=== PATIENT | female | born 1995 | race Caucasian/White ===

== ENCOUNTER 2024-09-11 07:48 | Inpatient (IN) ==
[2024-09-11] MEDS ORDERED: CALCIUM CARBONATE 500 MG CHEWABLE TAB PO PRN (07:49)
[2024-09-11] MEDS ORDERED: OXYTOCIN 30 UNITS/NSS 30 UNITS/500 ML BAG IV PRN ×2 (07:49→23:08)
[2024-09-11] MEDS ORDERED: LIDOCAINE 1% LOCAL 20 ML VIAL INFIL PRN (07:49)
[2024-09-11 08:45] LABS: Hematocrit (blood only) 34.5 % (37.0-47.0); Hemoglobin 11.7 g/dl (12.0-16.0); Mean Corpuscular Hemoglobin 32.6 pg (25.0-34.0); Mean Corpuscular Hgb Conc 33.9 g/dL (32.0-36.0); Mean Corpuscular Volume 96.1 fL (80.0-100.0); Mean Platelet Volume 12.1 fL (9.4-12.4); Platelet Count 183 K/uL (130-400); RDW Coefficient of Variation 12.9 % (11.5-14.5); RDW Standard Deviation 45.8 fL (36.4-46.3); Red Blood Count 3.59 M/uL (4.20-5.40); White Blood Count 9.92 K/ul (4.8-10.8)
[2024-09-11] MEDS: LACTATED RINGER'S 1,000 ML IV PRN (09:12)
--- NOTE | 2024-09-11 09:13 | History & Physical Report ---
Date of Service September 11, 2024 Assessment & Plan (1) Encounter for induction of labor: Plan: admit, iv, labs. start pitocin. arom when able. fhts categ 1. (2) Non-dilated cervix in term : Plan: vega ripening balloon placed. pt kourtney well. Admission and Anticipated Discharge Date Admission Date: September 11, 2024 History of Present Illness Chief Complaint: planned induction Primary Care Provider: VANIA Xie 28yo at 40+wks arianne presents to LD for planned induction. She denies rom, vb. +FM. No ctx. She did not get to come in overnight for planned vega ripening balloon. PNC c/b 1. marginal cord insertion PNL rh pos, ri, gbs neg OBH: g1 GYNH: nl paps no stds Allergies Allergy/AdvReac Type Severity Reaction Status Date / Time No Known Allergies Allergy Verified 09/10/24 14:09 Home Medications Medication Instructions Recorded Confirmed Type omega-3 fatty acids [Fish Oil] 1 tab PO DAILY 04/28/24 09/11/24 History prenat.vits,al,qqm-[id number] 1 tab PO DAILY 04/28/24 09/11/24 History omeprazole 20 mg capsule,delayed 20 mg PO DAILY 08/05/24 09/11/24 History release Patient History Medical History (Updated 09/11/24 @ 09:16 by Diana Odom MD, FACOG) Depression Patient states, she had depression in high school and not on medication currently. Family History Aunt Breast cancer Great aunt - maternal Grandmother (Maternal) Vulvar cancer Great great gma Mother Female bladder prolapse Denies family history of Ovarian cancer Prostate cancer Myocardial infarction Colorectal cancer Social History (Updated 09/11/24 @ 08:01 by Pia West RN) Smoking Status: Former smoker Tobacco Type: E-cigarettes / Vaping Smoking End Date: 01-03; Second Hand Exposure: No; Do You Dip or Chew Tobacco: No; Hx Alcohol Use: No Hx Substance Use: No Preferred Language: Vietnamese Communication Ability: Effective Hearing Ability: Normal Test Preparer Required: No Beliefs That Will Affect Care: None marital status: marital status details: Hector (34) [phone] Current Living Situation: Spouse Current Living Situation Comment: lives with spouse, 1 dog, 1 cats, pt changing litter with gloves/mask current occupational status: employed current occupation: [employer], Masters Degreee Other Information That Helps Us Care for You: No Feels Safe at Home: Yes Safety Concerns: Feels Safe At This Time Diet: regular Dental Care, Regularly: No Gender Identity: Female Assistive Devices: Contacts Review of Systems as per Subjective / HPI Physical Exam Constitutional: WD/WN, vitals as above Respiratory: normal respiratory effort, lungs clear to auscultation Cardiovascular: Rate/Rhythm: regular rate and regular rhythm Gastrointestinal (Abdomen): soft gravid nt efw 7-8# Musculoskeletal: no edema nontender calves Neurologic: grossly normal Psychiatric: A+Ox3, euthymic affect Genitourinary: Manual OB Exam: + cervical dilation 1 cm, + cervical effacement 50% and + station (mid med) -2 OB Exam Monitor Tracing: + external FHT monitor used, + external uterine monitor used, + category I and + normal FHT variability PROCEDURE: sse cx visualized, grasped on ant lip with ring forcep, vega through os and balloon inflated with 40cc sterile water. Spec removed, vega taped to leg. pt kourtney well. Results & Data Vital Signs (Past 12 Hours) Vital Signs Temp Pulse Resp BP 09/11/24 07:56 98.8 F 94 H 20 120/69 Coding Level of Care Code None Diagnoses Encounter for induction of labor Z34.90 Non-dilated cervix in term O34.40 CPT Codes Misx Procedure Codes - 42708 Placement of cervical dilator: 89553 Placement of cervical dilator ([id number])
[2024-09-11] MEDS: OXYTOCIN 30 UNITS/NSS 30 UNITS/500 ML BAG IV PRN (09:16)
--- NOTE | 2024-09-11 10:18 | Labor Progress Brief Note ---
Date of Service September 11, 2024 Subjective vega bulb fell out. Assessment & Plan (1) Encounter for induction of labor: Plan: will see how arom helps labor. c/w pit. fhts categ 1. Admission and Anticipated Discharge Date Admission Date: September 11, 2024 Physical Exam Constitutional: WD/WN, vitals as above Genitourinary: Manual OB Exam: + cervical dilation 4 cm, + cervical effacement (75%), + station -2 and + amniotic fluid (arom) clear OB Exam Monitor Tracing: + external FHT monitor used, + external uterine monitor used (q2-3), + category I and + normal FHT variability Results & Data Vital Signs (Past 12 Hours) Vital Signs Temp Pulse Resp BP 09/11/24 10:11 93 H 138/78 09/11/24 09:57 87 131/82 09/11/24 09:25 91 H 20 123/74 09/11/24 07:56 98.8 F 94 H 20 120/69 Coding Level of Care Code None Diagnoses Encounter for induction of labor Z34.90
[2024-09-11] MEDS: fentANYL 2 MCG/ML BUPIVacaine 0.125%-NSS 100ML BAG ONE (12:20)
[2024-09-11] MEDS ORDERED: NALBUPHINE HCL INJ 10 MG/ML AMP IV PRN (12:26)
[2024-09-11] MEDS ORDERED: BUPIVACAINE 0.25% PF 30 ML VIAL EPI STA (12:26)
[2024-09-11] MEDS ORDERED: fentaNYL citrate PF 100 MCG/2 ML VIAL EPI STA (12:26)
[2024-09-11] MEDS ORDERED: SODIUM CHLORIDE 0.9% PF INJ 10 ML VIAL EPI STA (12:26)
[2024-09-11] MEDS ORDERED: SODIUM CHLORIDE 0.9% PF INJ 10 ML VIAL EPI PRN (12:26)
[2024-09-11] MEDS ORDERED: diphenhydrAMINE 50 MG/ML VIAL IV PRN (12:26)
[2024-09-11] MEDS ORDERED: NALOXONE HCL 1 MG in SODIUM CHLORIDE 0.9% 1,000 ML IV PRN (12:26)
[2024-09-11] MEDS ORDERED: ROPIVACAINE 0.5% PF 5 MG/ML 20 ML VIAL EPI PRN (12:26)
[2024-09-11] MEDS ORDERED: PROMETHAZINE 6.25 MG/50.25 ML BAG IV PRN (12:26)
[2024-09-11] MEDS: BUPIVACAINE 0.25% PF 30 ML VIAL ONE (12:26)
[2024-09-11] MEDS ORDERED: BUPIVACAINE 0.25% PF 30 ML VIAL EPI PRN (12:26)
[2024-09-11] MEDS ORDERED: fentaNYL citrate PF 100 MCG/2 ML VIAL EPI PRN (12:26)
[2024-09-11] MEDS ORDERED: ePHEDrine sulfate 50 MG/ML AMP IV PRN (12:26)
[2024-09-11] MEDS ORDERED: LIDOCAINE 2% MPF LOCAL 5 ML VIAL EPI PRN (12:26)
[2024-09-11] MEDS ORDERED: NALOXONE HCL 0.4 MG/1 ML VIAL/CARP IV PRN (12:26)
[2024-09-11] MEDS ORDERED: LIDOCAINE 2%/EPINEPHRINE 1:200,000 20 ML PF EPI STA (12:26)
--- NOTE | 2024-09-11 12:26 | Anesthesiology Consultation ---
Date of Service September 11, 2024 Assessment & Plan Chart Review Chart Review: Patient NOT seen in Pre Admission Testing and Acceptable Risk for Labor Epidural Consults Requested none ASA ASA2 Proposed Anesthesia Anesthesia Type: Labor Epidural Risk / Benefits Reviewed With: PT / POA / Parent / Guardian, Accepts Plan and Informed Consent Obtained History Height/Weight Height: 5 ft 4 in Weight: 85.003 kg Allergies Allergy/AdvReac Type Severity Reaction Status Date / Time No Known Allergies Allergy Verified 09/10/24 14:09 Medications Home Medications Medication Instructions Recorded Confirmed Last Taken omega-3 fatty acids [Fish Oil] 1 tab PO DAILY 04/28/24 09/11/24 09/11/24 07:00 prenat.vits,al,nkj-rhgk-zvaby 1 tab PO DAILY 04/28/24 09/11/24 09/11/24 07:00 omeprazole 20 mg capsule,delayed 20 mg PO DAILY 08/05/24 09/11/24 09/11/24 07:00 release Active Medications Generic Name Dose Route Start Last Admin Trade Name Rufino PRN Reason Stop Dose Admin Lactated Ringer's 1,000 mls @ 125 mls/hr 09/11/24 07:49 09/11/24 12:14 Lr IV 09/13/24 07:48 999 mls/hr .Q8H PRN Administration L&D Protocol Protocol Oxytocin 30 units in 500 mls @ 9 mls/hr 09/11/24 07:51 09/11/24 11:16 Pitocin 30 Units/Nss IV 09/13/24 07:50 0.54 units/hr .Q24H PRN 9 mls/hr Labor Induction/Augmentation Titration Protocol 0.54 UNITS/HR Past Medical History Medical History (Updated 09/11/24 @ 10:16 by Diana Odom MD, FACOG) Depression Patient states, she had depression in high school and not on medication currently. Exercise / Class Metabolic Activity II 4-5 Yardwork/Stairs/Walk up hill Past Family History Family History Aunt Breast cancer Great aunt - maternal Grandmother (Maternal) Vulvar cancer Great great gma Mother Female bladder prolapse Denies family history of Ovarian cancer Prostate cancer Myocardial infarction Colorectal cancer Past Surgical History Surgical History (Updated 09/11/24 @ 11:05 by Pia West RN) H/O vaginal surgery Labiaplasty Past Anesthesia History No Hx of Anesthesia Complications and No Family Hx of Anesthesia Complications History of PONV No Hx of PONV and No Hx of Motion Sickness Social History Smoking Status: Former smoker Do You Dip or Chew Tobacco: No Smoking End Date: 01-03 Hx Alcohol Use: No Hx Substance Use: No substance use type: does not use Physical Exam Vital Signs Last Vital Signs Temp 36.8 C 09/11/24 11:50 Pulse 81 09/11/24 12:23 Resp 20 09/11/24 11:50 BP 123/58 L 09/11/24 12:23 Pulse Ox 98 09/11/24 12:23 ENMT Mouth: no dentition abnormality Thyromental Distance: > or= 3.5 Finger Breadths Mallampati Class: II Neck normal visual inspection Respiratory normal respiratory effort Auscultation: lungs clear to auscultation bilaterally Cardiovascular Rate/Rhythm: regular rate and regular rhythm Psychiatric Orientation: alert Testing Laboratory Results 09/11/24 08:27
[2024-09-11] MEDS: SODIUM CHLORIDE 0.9% PF INJ 10 ML VIAL ONE (12:27)
[2024-09-11] MEDS: LIDOCAINE 2%/EPINEPHRINE 1:200,000 20 ML PF ONE (12:27)
[2024-09-11] MEDS: fentaNYL citrate PF 100 MCG/2 ML VIAL ONE (12:27)
[2024-09-11] MEDS: ACETAMINOPHEN 325 MG TAB PO ONE (15:07)
--- NOTE | 2024-09-11 18:32 | Labor Progress Brief Note ---
Date of Service September 11, 2024 Subjective feeling some ctx. Assessment & Plan (1) Encounter for induction of labor: Plan: will plan to change position to knee chest as pt is able to better feel her legs. add pitocin and then reeval for cx change in 2hr or sooner if needed. pt and partner agreeable. Admission and Anticipated Discharge Date Admission Date: September 11, 2024 Physical Exam Constitutional: WD/WN, vitals as above Genitourinary: Manual OB Exam: + cervical dilation (ant lip), + cervical effacement 100% and + station + 1 OB Exam Monitor Tracing: + external FHT monitor used, + external uterine monitor used (q 2-3 pit has been off), + category I and + normal FHT variability attempted to reduce cx with push x 2, not successful. pit has been off as frequency of ctx has been good but now no cx change. Results & Data Vital Signs (Past 12 Hours) Vital Signs Temp Pulse Resp BP Pulse Ox 09/11/24 18:29 173 H 132/81 09/11/24 18:28 174 H 98 09/11/24 18:27 159 H 89 L 09/11/24 18:23 163 H 98 09/11/24 18:18 143 H 98 09/11/24 18:14 96 H 122/81 09/11/24 18:13 88 96 09/11/24 18:08 85 97 09/11/24 18:03 104 H 97 09/11/24 18:00 109 H 129/76 09/11/24 17:58 92 H 98 09/11/24 17:56 98.8 F 20 09/11/24 17:53 102 H 97 09/11/24 17:48 98 H 96 09/11/24 17:44 89 121/77 09/11/24 17:43 91 H 97 09/11/24 17:38 83 97 09/11/24 17:33 75 97 09/11/24 17:29 96 H 126/79 09/11/24 17:28 79 97 09/11/24 17:23 83 98 09/11/24 17:18 85 98 09/11/24 17:16 86 16 117/74 09/11/24 17:15 85 138/104 H 09/11/24 17:14 85 129/95 09/11/24 17:13 77 99 09/11/24 17:08 79 99 09/11/24 17:03 91 H 99 09/11/24 16:59 98.6 F 18 09/11/24 16:59 86 114/89 09/11/24 16:58 97 H 99 09/11/24 16:53 91 H 100 09/11/24 16:48 84 100 09/11/24 16:44 129 H 107/77 09/11/24 16:43 154 H 100 09/11/24 16:38 89 98 09/11/24 16:33 69 96 09/11/24 16:30 112 H 125/67 09/11/24 16:28 124 H 100 09/11/24 16:23 109 H 99 09/11/24 16:18 104 H 98 09/11/24 16:15 113 H 115/70 09/11/24 16:13 88 99 09/11/24 16:08 86 98 09/11/24 16:03 109 H 99 09/11/24 15:59 96 H 134/67 09/11/24 15:58 115 H 100 09/11/24 15:53 96 H 99 09/11/24 15:52 98.4 F 20 09/11/24 15:48 73 99 09/11/24 15:45 75 112/67 09/11/24 15:43 75 98 09/11/24 15:38 69 100 09/11/24 15:33 67 98 09/11/24 15:29 68 115/64 09/11/24 15:28 72 98 09/11/24 15:23 90 97 09/11/24 15:18 90 99 09/11/24 15:15 76 118/73 09/11/24 15:14 73 117/75 09/11/24 15:13 91 H 99 09/11/24 15:08 70 98 09/11/24 15:03 77 99 09/11/24 14:59 88 112/75 09/11/24 14:58 76 97 09/11/24 14:56 98.4 F 16 09/11/24 14:53 67 98 09/11/24 14:48 76 97 09/11/24 14:44 72 111/70 09/11/24 14:43 85 99 09/11/24 14:38 65 98 09/11/24 14:33 115 H 98 09/11/24 14:31 114 H 131/72 09/11/24 14:28 94 H 99 09/11/24 14:23 98 H 99 09/11/24 14:18 103 H 99 09/11/24 14:14 102 H 113/74 09/11/24 14:13 104 H 99 09/11/24 14:08 105 H 99 09/11/24 14:03 82 100 09/11/24 14:00 81 91 09/11/24 13:59 104 H 118/66 09/11/24 13:58 105 H 99 09/11/24 13:53 88 100 09/11/24 13:48 82 100 09/11/24 13:44 71 120/66 09/11/24 13:43 75 100 09/11/24 13:38 98.2 F 20 09/11/24 13:38 87 100 09/11/24 13:33 103 H 100 09/11/24 13:29 118 H 132/77 09/11/24 13:28 117 H 100 09/11/24 13:27 75 91 09/11/24 13:23 90 100 09/11/24 13:18 74 99 09/11/24 13:14 69 124/59 L 09/11/24 13:13 66 99 09/11/24 13:08 84 100 09/11/24 13:03 81 99 09/11/24 12:59 75 114/57 L 09/11/24 12:58 71 100 09/11/24 12:53 72 100 09/11/24 12:48 80 100 09/11/24 12:43 93 H 99 09/11/24 12:41 97.5 F L 18 09/11/24 12:38 98 H 100 09/11/24 12:36 112 H 108/52 L 09/11/24 12:33 70 99 09/11/24 12:29 86 120/65 09/11/24 12:28 82 97 09/11/24 12:27 86 123/64 09/11/24 12:25 104 H 120/58 L 09/11/24 12:23 98 09/11/24 12:23 81 09/11/24 12:23 85 123/58 L 09/11/24 12:21 75 122/73 05 12:19 79 131/66 09/11/24 12:18 85 98 09/11/24 12:17 103 H 148/88 H 09/11/24 12:13 98 H 97 09/11/24 12:08 85 99 09/11/24 11:50 98.2 F 20 09/11/24 11:44 83 138/89 09/11/24 10:47 98.4 F 09/11/24 10:41 93 H 20 126/77 09/11/24 10:26 82 131/74 09/11/24 10:24 97.5 F L 20 09/11/24 10:23 76 134/64 09/11/24 10:11 93 H 138/78 09/11/24 09:57 87 131/82 09/11/24 09:25 91 H 20 123/74 09/11/24 07:56 98.8 F 94 H 20 120/69 Coding Level of Care Code None Diagnoses Encounter for induction of labor Z34.90
[2024-09-11] MEDS: ePHEDrine sulfate 50 MG/ML AMP ONE (19:10)
[2024-09-11] MEDS ORDERED: NURSING L&D Epidural Breakthrough Pain Update ONE (19:11)
[2024-09-11] MEDS: fentANYL 2 MCG/ML BUPIVacaine 0.125%-NSS 100ML BAG EPI PRN (19:13)
[2024-09-11] MEDS: ONDANSETRON INJ 2 MG/ML 2 ML VIAL IV PRN (19:31)
--- NOTE | 2024-09-11 22:37 | Delivery Summary ---
Vaginal Delivery Summary Date of Service September 11, 2024 Vaginal Delivery Summary The patient dilated to complete and pushed to deliver a viable male infant Apgars 8 and 9 via over intact perineum. Mouth and nose bulb suctioned at perineum. Short cord noted. Shoulders and body delivered with ease. Infant was vigorous and crying at . Cord clamped at 30 seconds of life and infant to maternal abdomen where the cord was then doubly clamped and cut. Placenta delivered spontaneously and intact, three-vessel cord. Hemostasis achieved with dilute pitocin and uterine massage. Cervix and sulci intact. Small vaginal laceration repaired with 3-0 vicryl for excellent hemostasis. EBL 73 cc. Mother and baby stable in recovery. [facility] Vaginal Delivery Charge Delivery Type Details:
[2024-09-11] MEDS ORDERED: BENZOCAINE 20% SPRY 85 APPLN/85 GM CAN EXT PRN (23:08)
[2024-09-11] MEDS ORDERED: HYDROCORTISONE ACETATE 25 MG SUPP PR PRN (23:08)
[2024-09-11] MEDS ORDERED: oxyCODONE/ACETAMINOPHEN 5mg/325mg TAB PO PRN (23:08)
[2024-09-12] MEDS: DIPHTHER/TETAN/PERTUS Vaccine (Tdap, Adol/Adult) 0.5mL IM ONE (00:10)
[2024-09-12] MEDS: ACETAMINOPHEN 325 MG TAB PO PRN (02:41)
[2024-09-12] MEDS: IBUPROFEN 600 MG TAB PO PRN (02:41)
--- NOTE | 2024-09-12 07:55 | Obstetrical Progress Note ---
Date of Service September 12, 2024 Assessment & Plan (1) care following vaginal delivery: Plan stable, routine care. , rhpos, ri. Day #:: 1 Subjective Ambulation: ambulating normally Voiding: no voiding problems Diet Tolerance:: regular diet Lochia:: Small Feeding Type:: breast feeding doing well. nursing. no complaints. Constitutional: + as per Subjective / HPI Physical Exam Constitutional WD/WN, vitals as above Respiratory normal respiratory effort, lungs clear to auscultation Cardiovascular Rate/Rhythm: regular rate and regular rhythm Gastrointestinal (Abdomen) Inspection/Auscultation: abdomen normal to inspection Percussion/Palpation: abdomen soft Fundus firm 1cm down Musculoskeletal nt calves no edema Neurologic grossly normal Psychiatric A+Ox3, euthymic affect Results & Data Vital Signs (Past 12 Hours) Vital Signs Temp Pulse Pulse Resp BP BP Pulse Ox 09/12/24 05:15 98.2 F 74 18 109/70 09/12/24 03:12 81 95/57 L 09/12/24 01:10 99.3 F 80 16 112/64 96 09/12/24 00:32 16 09/12/24 00:32 88 110/61 09/12/24 00:17 76 114/63 09/12/24 00:02 99.3 F 80 112/67 09/11/24 23:47 73 110/56 L 09/11/24 23:32 16 09/11/24 23:32 77 115/57 L 09/11/24 23:17 16 09/11/24 23:17 83 105/53 L 09/11/24 23:02 16 09/11/24 23:02 86 110/64 09/11/24 22:48 16 09/11/24 22:48 96 H 106/59 L 95 09/11/24 22:43 103 H 96 09/11/24 22:38 101 H 95 09/11/24 22:33 106 H 96 09/11/24 22:32 99.9 F H 18 09/11/24 22:32 104 H 95/52 L 09/11/24 22:29 102 H 122/55 L 09/11/24 22:28 108 H 97 09/11/24 22:23 137 H 98 09/11/24 22:18 82 98 09/11/24 22:14 82 121/57 L 09/11/24 22:13 100 H 96 09/11/24 22:09 139 H 92 09/11/24 22:08 147 H 96 09/11/24 22:03 131 H 96 09/11/24 21:58 155 H 96 09/11/24 21:53 133 H 97 09/11/24 21:48 141 H 96 09/11/24 21:44 146 H 116/56 L 09/11/24 21:43 170 H 97 09/11/24 21:38 141 H 98 09/11/24 21:33 136 H 98 09/11/24 21:28 137 H 97 09/11/24 21:23 149 H 98 09/11/24 21:18 182 H 97 09/11/24 21:15 172 H 91 09/11/24 21:14 148 H 109/55 L 09/11/24 21:13 152 H 98 09/11/24 21:08 191 H 96 09/11/24 21:04 181 H 94 09/11/24 21:03 152 H 100 09/11/24 20:58 89 99 09/11/24 20:55 110 H 94 09/11/24 20:53 74 99 09/11/24 20:51 18 09/11/24 20:51 98.8 F 18 09/11/24 20:48 74 95 09/11/24 20:45 96 H 122/78 09/11/24 20:43 109 H 99 09/11/24 20:38 91 H 97 09/11/24 20:33 87 97 09/11/24 20:29 75 113/70 09/11/24 20:28 86 99 09/11/24 20:23 80 97 09/11/24 20:18 75 98 09/11/24 20:14 85 116/66 09/11/24 20:13 82 97 09/11/24 20:08 79 99 09/11/24 20:03 74 97 09/11/24 19:59 81 116/73 09/11/24 19:58 80 97 09/11/24 19:53 71 97 O2 Del Method 09/12/24 05:15 Room Air 09/12/24 03:12 09/12/24 01:10 Room Air 09/12/24 00:32 09/12/24 00:32 09/12/24 00:17 05/03/25 00:02 09/11/24 23:47 09/11/24 23:32 09/11/24 23:32 09/11/24 23:17 09/11/24 23:17 09/11/24 23:02 09/11/24 23:02 09/11/24 22:48 09/11/24 22:48 09/11/24 22:43 09/11/24 22:38 09/11/24 22:33 09/11/24 22:32 09/11/24 22:32 09/11/24 22:29 09/11/24 22:28 09/11/24 22:23 09/11/24 22:18 09/11/24 22:14 09/11/24 22:13 09/11/24 22:09 09/11/24 22:08 09/11/24 22:03 09/11/24 21:58 09/11/24 21:53 09/11/24 21:48 09/11/24 21:44 09/11/24 21:43 09/11/24 21:38 09/11/24 21:33 09/11/24 21:28 09/11/24 21:23 09/11/24 21:18 09/11/24 21:15 09/11/24 21:14 09/11/24 21:13 09/11/24 21:08 09/11/24 21:04 09/11/24 21:03 09/11/24 20:58 09/11/24 20:55 09/11/24 20:53 09/11/24 20:51 09/11/24 20:51 09/11/24 20:48 09/11/24 20:45 09/11/24 20:43 09/11/24 20:38 09/11/24 20:33 09/11/24 20:29 09/11/24 20:28 09/11/24 20:23 09/11/24 20:18 09/11/24 20:14 09/11/24 20:13 09/11/24 20:08 09/11/24 20:03 09/11/24 19:59 09/11/24 19:58 09/11/24 19:53
[2024-09-12] MEDS: DOCUSATE SODIUM 100 MG CAP PO SCH (08:04)
[2024-09-12] MEDS: PRENATAL VITAMIN 1 TAB PO SCH (08:04)
--- NOTE | 2024-09-12 08:13 | Anesthesia Procedure Note ---
Date of Service September 12, 2024 Anesthesia Post Epidural Note Vital Signs Vital Signs: Temp Pulse Resp BP Pulse Ox O2 Del Method 36.8 C 74 18 109/70 96 Room Air 09/12/24 05:15 09/12/24 05:15 09/12/24 05:15 09/12/24 05:15 09/12/24 01:10 09/12/24 05:15 Pain Intensity Abdomen: Pain Intensity: 3 Notes Mental Status: alert / awake / arousable Nausea / Vomiting: adequately controlled Pain: adequately controlled Airway Patency, RR, SpO2: stable & adequate BP & HR: stable & adequate Hydration State: stable & adequate Neuraxial Anesthesia: was administered and sensory block is resolving Anesthetic Complications: no major complications apparent and Pt Satisfied with anesthetic care Epidural: Removed without complications and With tip intact
[2024-09-12] MEDS: PANTOprazole 40 MG TAB PO SCH (15:05)
[2024-09-12] MEDS: bisacodyL 5 MG TABEC PO SCH (20:31)
[2024-09-12 23:10] VITALS: O2SAT 97
[2024-09-13 08:36] VITALS: BP 109/66; PULSE 49; RESP 18; TEMP 97.7
--- NOTE | 2024-09-13 09:25 | Obstetrical Progress Note ---
Date of Service September 13, 2024 Assessment & Plan (1) care following vaginal delivery: meets criteria, no calf pain home Subjective Ambulation: ambulating normally Voiding: no voiding problems Passing Gas:: Yes Diet Tolerance:: regular diet Lochia:: Small Physical Exam Constitutional WD/WN, vitals as above well developed and well nourished Respiratory normal respiratory effort, lungs clear to auscultation normal respiratory effort Cardiovascular RRR, no murmur, no edema Gastrointestinal (Abdomen) normal bowel sounds, soft, nontender, no hepatosplenomegaly Results & Data Vital Signs (Past 12 Hours) Vital Signs Temp Pulse Resp BP Pulse Ox O2 Del Method 09/13/24 07:55 97.7 F 49 L 18 109/66 Room Air 09/12/24 23:09 98.6 F 79 16 107/70 97 Room Air
== END 2024-09-13 11:45 | disposition home or self-care (01) | DRG 807 ==
LOC: 4S1 07:48 → 4E2 09-12 01:02